=== PATIENT | male | born 1980 | race Caucasian/White ===

== ENCOUNTER 2016-11-22 05:24 | Emergency (ER) | payer OTHER ==
[~2016-11-22] VITALS: Ht 177.8 cm; Wt 86.4 kg
[2016-11-22 05:30] VITALS: BP 148/83; PULSE 82; RESP 18; O2SAT 97
--- NOTE | 2016-11-22 06:19 | ED.REPORT ---
HPI-General Illness Date of Service Nov 22, 2016 ED Provider: Anila Spear MD A 36 year old male with a history of lipomas presents to the ED complaining of left arm numbness and pain onset this morning that woke him up from sleep. Lipomas are normally present in his right arm as well as other parts of his body. Pain is described as feeling like loss of circulation to the arm and he describes that since he's been in the ED, he feels "pulses" of left arm paresthesia. Associated symptoms include pin point pain present in baseline lipomas. Lipomas do not always hurt, but they do cause occasional baseline pain that usually resolves itself. However, this morning the pain did not go away. The right arm currently does no hurt as bad as the left, except for lipoma spots. He reports having some lipomas surgically removed from his back 8 years ago because of the pain, the pain then being right next to spine. He currently has a lipoma at the base of his spine that is very painful. He reports recent changes in vision described as flutters with no blurriness. He endures pain in his hands and feet at work, that is exacerbated by the cold. He reports baseline paresthesia in right leg when he is walking which happens to the left leg less frequently. He also reports baseline leg swelling and recent baseline dysphagia that comes and goes. The patient denies any difficulty with speech, loss of extremity functioning, fever, cough, cold like symptoms, chills, unexplained weight loss or gain, double vision, dry mouth, dry eyes, or difficultly with defecation of urination. He has not taken any Tylenol or ibuprofen today. He does not have a PCP, library technician or neurologist. He denies any family history of lipoma and denies any other pertinent medical history. 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 Nursing Notes Stated Complaint: PAIN ALL OVER Chief Complaint: General Complaint Nursing Notes Reviewed: Yes Allergies: Coded Allergies: No Known Allergies (Unverified , 11/22/16) General Time Seen by MD: 06:05 Chief Complaint Other (Numbness in left arm) Hx Obtained From: Patient Arrived By: Walk-in Onset Occurred: 1 - 4 hours ago Symptom Duration: Since onset Location: : Arm left Recent Healthcare: No recent doctor visit Similar Sx Previous: No Past Medical History Past Medical History History of lipomas. Reports baseline leg paresthesia and numbness that sometimes occurs while he is walking. Past Surgical History Surgical removal of lipomas on back 8 years ago. Social History Other Social History: Good social support Ambulatory Status Independent Review of Systems Left arm pain. Left arm paresthesia. Pin point pain in lipomas. Denies difficulty with speech. Denies loss of extremity functioning. Denies cold-like symptoms. Denies double vision. Denies dry mouth. Denies dry eyes. Denies difficulty with defectation or uriniation. Full Review of Systems Constitutional: Denies: Chills, Fever, Recent wt loss Respiratory: Denies: Non-productive cough Neurologic: Reports: Numbness (left arm) Complete sys rev & neg: except as marked. Physical Exam Vital Signs Vital Signs Date Time Temp Pulse Resp B/P Pulse Ox O2 Delivery O2 Flow Rate FiO2 11/22/16 05:30 36.6 82 18 148/83 97 Room Air Initial VS: Reviewed General/Constitutional: Awake, Alert Head / Eyes: Atraumatic, Normocephalic, PERRL, EOMI ENT: Atraumatic, Mucous membranes moist Neck: Atraumatic, Full range of motion Respiratory / Chest: Atraumatic, Breath sounds NL, Breath sounds = bilat, No respiratory distress, No rales, No rhonchi Cardiovascular: Heart rate NL, Regular rhythm, Heart sounds NL, No gallop, No murmurs, No rubs Abdomen: Atraumatic, No guarding, No rebound Back: Atraumatic, Full range of motion Upper Extremities No radicular pain down left arm with axial compression and compaction and maneuvers at C-spine. Signifigant pain with the left ulnar nerve being touched or manipulated. Lower Extremity / Pelvis / MS: Atraumatic, Full range of motion Skin: Warm, Dry Deep dermal nodules, 3mm-3cm size range, all over the skin sparing the head. No other epidermal rashes. Neurologic: Oriented X3, Speech NL, CN II - XII intact No strength asymmetry, no ataxia, no visual changes. Interpretation & Diagnostics Lab Results Interpretation Result Diagram: 11/22/16 0728 11/22/16 0728 Test 11/22/16 07:25 11/22/16 07:28 Hold Toure Top Tube Received (Received) White Blood Count 5.6th/mm3 (3.8-10.1) Red Blood Count 5.23mil/mm3 (4.40-5.80) Hemoglobin 15.3g/dL (13.8-17.2) Hematocrit 43.6% (41.0-50.0) Mean Corpuscular Volume 83.4fL (81-100) Mean Corpuscular Hemoglobin 29.3pg (27.0-35.0) Mean Corpuscular Hemoglobin Concent 35.1% (32.0-37.0) Red Cell Distribution Width 12.5% (12.3-15.4) Platelet Count 234bil/L (150-400) Neutrophils (%) (Auto) 48.4% (40-74) Lymphocytes (%) (Auto) 38.3% (14-46) Monocytes (%) (Auto) 11.4% (4-12) Eosinophils (%) (Auto) 1.2% (0-5) Basophils (%) (Auto) 0.5% (0-3) Erythrocyte Sedimentation Rate 4mm/hr (0-15) Sodium Level 140mEq/L (134-144) Potassium Level 4.0mEq/L (3.5-5.2) Chloride Level 105mEq/L (97-108) Carbon Dioxide Level 22mmol/L (18-29) Blood Urea Nitrogen 19mg/dL (6-20) Creatinine 0.82mg/dL (0.76-1.27) Estimat Glomerular Filtration Rate 114mL/min (>59) Glucose Level 115mg/dL (60-99) Calcium Level 8.7mg/dL (8.5-10.1) Total Bilirubin 0.4mg/dL (0.0-1.2) Aspartate Amino Transf (AST/SGOT) 17U/L (0-50) Alanine Aminotransferase (ALT/SGPT) 27U/L (0-44) Alkaline Phosphatase 61U/L (25-150) C-Reactive Protein 0.1mg/dL (0.0-0.5) Total Protein 6.5g/dL (6.4-8.4) Albumin 4.2g/dL (3.4-5.0) Thyroid Stimulating Hormone (TSH) 3.150uIU/mL (0.450-4.500) Re-Eval/Medical Decision Source of Hx: Old records Time of Eval: 09:15 Patient Status: Condition improved Re-Evaluation/Progress Note: Discussed findings and follow up recommendations. Counseled Regarding: Diagnosis, Lab results, Need for follow-up, When/why to return to ED Discharge & Departure Primary Impression: Subcutaneous nodules, generalized Additional Impression: Arm pain, left Ruled Out: Stroke, Cervical radiculopathy Disposition: Home Discharge Condition All VS Reviewed: Yes Condition: Improved I am reassured with the lab work we did today that there is no acute or lifethreatening issue today. I am concerned that the painful subcutaneous nodules you have that are worse now are a symptom of a disease that may take a bit more time to fully diagnose. My recommendation would be to establish care with a primary care physician. I would also recommend talking with a library technician. I would recommend Dr Chelsea Tang, [facility]. I think a full thickness biopsy of one the nodules will help in getting to a full diagnosis. When you call to schedule an apt, please tell them it is on the recommendation of the ER physician and you would prefer to see the physician for a medical consultation for painful subcutaneous nodules. Referrals: NOPCP (PCP) Scribe Attestation Portions of this note were transcribed by Zion Crawford. IDr. Spear, personally performed the history, physical exam, and medical decision-making: I reviewed and confirmed the accuracy for the information in the transcribed note. Signed by: edward Fonseca, 11/22/16 0954. copies to: Chelsea Tang MD; Chapin Flanagan MD, Shawna L MD Nov 22, 2016 06:18 Zion Crawford Nov 22, 2016 06:[address] Chelsea Tang, [facility]. I think a full thickness biopsy of one the nodules will help in getting to a full diagnosis. When you call to schedule an apt, please tell them it is on the recommendation of the ER physician and you would prefer to see the physician for a medical consultation for painful subcutaneous nodules. Referrals: NOPCP (PCP) Scribe Attestation Portions of this note were transcribed by Zion Crawford. Dr. Rainer Mayers, personally performed the history, physical exam, and medical decision-making: I reviewed and confirmed the accuracy for the information in the transcribed note. Signed by: edward Fonseca, 11/22/16 0954. copies to: Chelsea Tang MD; Chapin Flanagan MD, Shawna L MD Nov 22, 2016 06:18 Zion Crawford Nov 22, 2016 06:40
[2016-11-22 07:42] LABS: BASOPHILS % (AUTO) 0.5 % (0-3); EOSINOPHILS % (AUTO) 1.2 % (0-5); MONOCYTES % (AUTO) 11.4 % (4-12); Mean Corpuscular Hemoglobin 29.3 pg (27.0-35.0); Mean Corpuscular Volume 83.4 fL (81-100); NEUTROPHILS % (AUTO) 48.4 % (40-74); Platelet Count 234 bil/L (150-400)
[2016-11-22 09:20] LABS: ERYTHROCYTE SEDIMENTATION RATE 4 mm/hr (0-15)
== END 2016-11-22 09:26 | disposition home or self-care (01) ==
LOC: SED 05:24
DX: M79.89 Other specified soft tissue disorders (principal); M79.602 Pain in left arm; D17.79 Benign lipomatous neoplasm of other sites; R20.2 Paresthesia of skin; Z86.018 Personal history of other benign neoplasm; Z98.890 Other specified postprocedural states